=== PATIENT | female | born 1965 | race Caucasian/White ===

== ENCOUNTER 2024-11-25 07:23 | Emergency (ER) | payer OTHER, BC ==
[~2024-11-25] VITALS: Ht 165.1 cm; Wt 83.1 kg
[2024-11-25 08:02] LABS: BASOPHILS 0.2 % (0.1-1.2); EOSINOPHILS 0.3 % (0.7-5.8); LYMPHOCYTES 30.7 % (19.3-51.7); MCH 28.7 PG (25.6-32.2); MCHC 33.5 g/dL (32.2-35.5); MCV 85.6 fL (79.4-94.8); MONOCYTES 6.7 % (4.7-12.5); NEUTROPHILS 61.9 % (34.0-71.1); RBC 4.92 M/uL (3.93-5.22)
[2024-11-25 08:09] LABS: BLOOD/HGB, URINE MODERATE (Negative); KETONE, URINE NEGATIVE (Negative); LEUK ESTERASE, URINE NEGATIVE (negative); NITRITE, URINE NEGATIVE (negative)
[2024-11-25 08:15] LABS: BACTERIA, URINE NONE SEEN /hpf (negative); CASTS, URINE NONE SEEN \\lpf; CRYSTALS, URINE NONE SEEN (0-1+); EPITHELIAL CELLS, URINE SQUAMOUS 2+ /lpf (0-1+); REFLEX CULTURE, URINE No (No)
[2024-11-25 08:18] LABS: ALT (SGPT) 40.0 U/L (14-59); AST (SGOT) 41.0 U/L (15-37); GLOMERULAR FILTRATION RATE,EST 102.0 mL/min (>60); PROTEIN, TOTAL 7.3 g/dL (6.4-8.2); UREA NITROGEN 18.0 mg/dL (7-18)
[2024-11-25 08:34] VITALS: BP 128/83
[2024-11-25] MEDS ORDERED: LISINOPRIL10 MG PO (08:36)
[2024-11-25] MEDS ORDERED: PREMARIN30 GM PV (08:36)
[2024-11-25] MEDS ORDERED: LIPITOR40 MG PO (08:36)
[2024-11-25] MEDS ORDERED: PREDNISONE20 MG PO (08:37)
[2024-11-25] MEDS ORDERED: MOUNJARO2.5 MG/0.5 SUB-Q (08:37)
[2024-11-25] MEDS ORDERED: CEPHALEXIN500 M1 PO ×2 (08:41→08:50)
[2024-11-25] MEDS ORDERED: POTASSIUM CHLORIDE 10 MEQ TABCR PO ONE (09:00)
--- OUTSIDE RECORDS SUMMARY | 2024-11-25 09:31 | XMS ---
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 E.Jeannette VISIT COUNT (12 MO.) [address] [place] [address] [place] TOTAL 2 NOTE: Visits indicate total known visits. ED/UCC VISIT TRACKING (12 MO.) 11/25/2024 07:24 [facility] TYPE: Emergency COMPLAINT: - SKIN PROBLEM 11/22/2024 14:20 [facility] [place] TYPE: Emergency DIAGNOSES: - Hypokalemia - Pain in joints of left hand - Pain in joints of right hand - Rash and other nonspecific skin eruption - Rash - Rash, abnormal lab results INPATIENT VISIT TRACKING (12 MO.) No inpatient visits to display in this time frame [email or web address]
== END 2024-11-25 09:00 | disposition home or self-care (01) ==
LOC: ED 07:23
PROVIDERS: Emergency Medicine
DX: N30.91 Cystitis, unspecified with hematuria (principal); L50.9 Urticaria, unspecified; Z91.041 Radiographic dye allergy status; Z88.5 Allergy status to narcotic agent
CPT/HCPCS: 36415; 80053; 81001; 85025; 99283; A9270